=== PATIENT | male | born 1980 | race Caucasian/White ===

== ENCOUNTER 2025-07-27 08:45 | Day surgery (SDC) | payer OTHER ==
[2025-07-27] VITALS (10 sets, daily range): BP systolic 103–157; BP diastolic 54–105
[~2025-07-27] VITALS: Ht 165.1 cm; Wt 50.0 kg
[~2025-07-27 08:45] MED LIST: BACL10 PO; DOCU100 PO; EPIPEN0.3 MG/0.3 IM; GABA300 PO; LIDO700A20 TOP; PROP10 PO; Prozac20 MG PO; ROSUVASTATIN CAL5 MG PO; TRAM50 PO; VENL25 PO
[2025-07-27] MEDS ORDERED: CeFAZolin Sodium 2,000 MG in NS 100 ML IV SCH (09:00)
[2025-07-27] MEDS ORDERED: Midazolam HCl 1MG / ML 2ML Vial ONE (09:07)
[2025-07-27] MEDS ORDERED: FentaNYL Citrate 50 MCG/ML 2 ML Injection ONE (09:07)
[2025-07-27] MEDS ORDERED: HYDROmorphone HCl/Pf 1MG SYR IV PRN (09:15)
[2025-07-27] MEDS ORDERED: Ondansetron HCl 2 MG / ML 2ML Vial IV PRN (09:15)
[2025-07-27] MEDS ORDERED: FentaNYL Citrate 50 MCG/ML 2 ML Injection IV PRN ×2 (09:15)
[2025-07-27] MEDS ORDERED: Prochlorperazine Edisylate 10 mg Vial IV PRN (09:25)
--- NOTE | 2025-07-27 09:29 | NUR ---
History, Chart, Medications and Allergies reviewed before start of procedure. Pre-Op teaching done. Pt verbalizes understanding. Patient confirms NPO status and agrees with scheduled surgery. Patient States Post-Procedure ride home has been arranged. IN VIA WC, AMBULATES WITH CANE. STATES WEAKNESS TO BILATERAL LOWER EXTEMITIES.
[2025-07-27] MEDS ORDERED: Bupivacaine 0.5% HCl 5 MG/ML 30MLVIAL ONE (09:52)
[2025-07-27] MEDS ORDERED: Ondansetron HCl 2 MG / ML 2ML Vial ONE (10:13)
[2025-07-27] MEDS ORDERED: Ketorolac Tromethamine 30mg Vial ONE (10:13)
[2025-07-27] MEDS ORDERED: Dexamethasone Sod Phos 10 MG/ML 1ML VIAL ONE (10:13)
[2025-07-27] MEDS ORDERED: Phenylephrine HCl 100 MCG/ML-NS 10MLSYR (1MG/10ML) ONE (10:22)
[2025-07-27] MEDS ORDERED: Sugammadex Sodium 200 MG/2ML SDV (100 MG/ML) ONE (10:31)
[2025-07-27] MEDS ORDERED: OxyCODONE 5 mg/Acetamin 325 mg TABLET PO PRN (11:00)
--- NOTE | 2025-07-27 12:18 | NUR ---
Patient up to Ambulate independently WITH CANE. Discharge instructions reviewed with patient. Patient verbalizes understanding. Copy given to patient to take home. Dressing to procedure site clean, dry, intact with no visible drainage, swelling, erythema or bruising noted. ABD BINDER IN PLACE. Patient States Post-Procedure ride home has been arranged. Discharged via wheelchair to private car for ride home.
== END 2025-07-27 22:00 | disposition home or self-care (01) ==
LOC: ORSCMMR 08:45 → ORD 10:00 → ORSCMMR 10:00
PROVIDERS: Surgery
PROC: 0JB70ZX Excision of Back Subcutaneous Tissue and Fascia, Open Approach, Diagnostic (ICD-10-PCS; principal; 2025-07-27 10:00)
DX: D17.1 Benign lipomatous neoplasm of skin and subcutaneous tissue of trunk (principal); Z79.899 Other long term (current) drug therapy
CPT/HCPCS: 88304; A9270; J0690; J1100; J1885; J2250; J2371; J2405; J2704; J3010; J7120